=== PATIENT | female | born 1955 | race Caucasian/White ===

== ENCOUNTER → 2016-08-20 | Day surgery (SDC) | payer BC ==
[~2016-08-20] VITALS: Ht 165.1 cm; Wt 86.2 kg
[~2016-08-20] MED LIST: AMARYL4 MG PO; AMLODIPINE-BEN1 EAC5 PO; ASCORBIC ACID500 MG PO; CALCIUM 600 +1 EAC7 PO; CELEXA20 MG PO; CINNAMON500 MG PO; CRESTOR20 MG PO; GLUCOPHAGE1000 MG PO; INVOKANA100 MG PO; JANUVIA 100 MG100 MG PO; LEVOTHROID (SY50 MCG PO; MOBIC15 MG PO; NORCO 5-325 TA1 EACH PO; ULTRAM50 MG PO
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
[2016-08-20 12:47] LABS: BASOPHIL % 0.5 %; EOSINOPHIL # 0.1 K/uL (0.0-0.5); EOSINOPHIL % 1.6 %; HEMATOCRIT 44.5 % (33.0-46.0); IMMATURE GRANULOCYTE % 0.5 %; LYMPHOCYTE # 1.1 K/uL (0.8-4.0); LYMPHOCYTE % 12.3 %; MCH 27.9 pg (27.0-34.0); MCHC 31.5 gm/dL (32.0-36.5); MCV 88.8 fl (83.0-98.0); MONOCYTE # 0.9 K/uL (0.0-1.0); MONOCYTE % 10.7 %; MPV 9.4 fl (9.4-12.4); NEUTROPHIL # (ANC) 6.6 K/uL (1.8-7.8); NEUTROPHIL % 74.4 %; NRBC % 0 /100WBC (0-0.00); PLATELET COUNT 226 K/uL (150-450); RBC 5.01 M/uL (3.50-5.50); RDW-CV 13.3 % (11.9-14.6); WBC 8.8 K/uL (4.0-11.0)
[2016-08-20 13:02] LABS: ALBUMIN 4.2 gm/dL (3.5-5.0); ALK PHOS 77 IU/L (33-138); ALT 22 IU/L (12-78); AST 16 IU/L (10-40); BLOOD UREA NITROGEN 17 mg/dL (6-24); CALCIUM 9.5 mg/dL (8.5-10.5); CHLORIDE 105 mMol/L (96-110); CO2 27 mMol/L (22-32); CREATININE 0.9 mg/dL (0.5-1.1); ESTIMATED GFR (MDRD EQUATION) > 60; SODIUM 138 mMol/L (135-145); TOTAL BILIRUBIN 1.1 mg/dL (0.0-1.5)
== END | disposition disaster alternative care site (69) ==
LOC: GPOC 08-16 09:00 → GSDC 12:01
PROVIDERS: Urology
PROC: 0TC78ZZ Extirpation of Matter from Left Ureter, Via Natural or Artificial Opening Endoscopic (ICD-10-PCS; principal; 2016-08-20)
PROC: 0T778DZ Dilation of Left Ureter with Intraluminal Device, Via Natural or Artificial Opening Endoscopic (ICD-10-PCS; 2016-08-20)
DX: N20.2 Calculus of kidney with calculus of ureter (principal); N81.10 Cystocele, unspecified; E11.9 Type 2 diabetes mellitus without complications; E03.9 Hypothyroidism, unspecified; I10 Essential (primary) hypertension; E78.5 Hyperlipidemia, unspecified; Z90.710 Acquired absence of both cervix and uterus; Z85.43 Personal history of malignant neoplasm of ovary; Z79.84 Long term (current) use of oral hypoglycemic drugs; Z79.899 Other long term (current) drug therapy
CPT/HCPCS: C1769; C2617; J1956; J2001; J7030

== ENCOUNTER → 2016-09-19 | Outpatient (CLI) | payer BC | END | disposition disaster alternative care site (69) | LOC: GRAD 12:18 | DX: N20.0 Calculus of kidney (principal) | CPT/HCPCS: A9539; J1940 ==

== ENCOUNTER 2016-10-22 11:22 | Day surgery (SDC) | payer BC ==
[~2016-10-22] VITALS: Ht 165.1 cm; Wt 82.3 kg
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
[~2016-10-22 11:22] MED LIST changes: -NORCO 5-325 TA1 EACH PO
[2016-10-23 00:56] LABS: BASOPHIL % 0.2 %; HEMATOCRIT 39.1 % (33.0-46.0); HEMOGLOBIN 12.2 g/dL (10.0-15.0); IMMATURE GRANULOCYTE % 0.3 %; LYMPHOCYTE # 0.8 K/uL (0.8-4.0); LYMPHOCYTE % 9.2 %; MCH 27.9 pg (27.0-34.0); MCHC 31.2 gm/dL (32.0-36.5); MCV 89.5 fl (83.0-98.0); MONOCYTE # 0.5 K/uL (0.0-1.0); MONOCYTE % 5.8 %; MPV 9.3 fl (9.4-12.4); NEUTROPHIL # (ANC) 7.4 K/uL (1.8-7.8); NEUTROPHIL % 84.5 %; NRBC % 0 /100WBC (0-0.00); PLATELET COUNT 197 K/uL (150-450); RBC 4.37 M/uL (3.50-5.50); RDW-CV 13.4 % (11.9-14.6); WBC 8.7 K/uL (4.0-11.0)
[2016-10-23 06:36] LABS: ALBUMIN 3.2 gm/dL (3.5-5.0); ANION GAP 11.1 (10.0-19.0); BLOOD UREA NITROGEN 18 mg/dL (6-24); CHLORIDE 110 mMol/L (96-110); CO2 24 mMol/L (22-32); CREATININE 0.7 mg/dL (0.5-1.1); ESTIMATED GFR (MDRD EQUATION) > 60; PHOSPHORUS 3.3 mg/dL (2.5-4.9); POTASSIUM 4.1 mMol/L (3.7-5.1); SODIUM 141 mMol/L (135-145)
[2016-10-23] MEDS ORDERED: NORCO 5-325 TA1 EACH PO (08:22)
== END 2016-10-23 11:10 | disposition disaster alternative care site (69) ==
LOC: GSDC 11:22 → GMSU 11:22 → GSDC 13:00
PROVIDERS: Urology
PROC: BT1FZZZ Fluoroscopy of Left Kidney, Ureter and Bladder (ICD-10-PCS; principal; 2016-10-22)
PROC: 0T778DZ Dilation of Left Ureter with Intraluminal Device, Via Natural or Artificial Opening Endoscopic (ICD-10-PCS; 2016-10-22)
PROC: 0TC13ZZ Extirpation of Matter from Left Kidney, Percutaneous Approach (ICD-10-PCS; 2016-10-22)
DX: N13.2 Hydronephrosis with renal and ureteral calculous obstruction (principal); E11.9 Type 2 diabetes mellitus without complications; I10 Essential (primary) hypertension; E03.9 Hypothyroidism, unspecified; Z85.42 Personal history of malignant neoplasm of other parts of uterus; Z79.84 Long term (current) use of oral hypoglycemic drugs; Z79.899 Other long term (current) drug therapy
CPT/HCPCS: C1726; C1769; C2617; J3010; J7030